=== PATIENT | male | born 1965 | race Caucasian/White ===

== ENCOUNTER 2020-01-30 15:28 | Emergency (ER) | payer OTHER, MEDICAID ==
[~2020-01-30] VITALS: Ht 177.8 cm; Wt 68.0 kg
[2020-01-30 15:34] VITALS: Ht 177.8 cm; Wt 68.0 kg
[2020-01-30 17:46] VITALS: BP 149/89
== END 2020-01-30 17:46 | disposition home or self-care (01) ==
LOC: ED 15:28
DX: K62.89 Other specified diseases of anus and rectum (principal); E11.9 Type 2 diabetes mellitus without complications; J44.9 Chronic obstructive pulmonary disease, unspecified